=== PATIENT | female | born 1995 | race Hispanic/Latino ===

== ENCOUNTER 2019-12-10 04:59 | Emergency (ER) | payer OTHER, SELFPAY ==
[2019-12-10] MEDS ORDERED: ONDANSETRON 4 MG/2 ML VIAL ONE (05:25)
[2019-12-10] MEDS ORDERED: MORPHINE 4 MG/ML SYR ONE (05:25)
[2019-12-10] MEDS ORDERED: NA CHLORIDE 0.9% 1,000 ML ONE (05:25)
[2019-12-10 05:31] LABS: Absolute Lymphocytes (CBC) 4.7 K/uL (0.7-4.9); Basophils % 0.5 % (0-1.3); Hematocrit 42.2 % (36.0-45.0); Lymphocytes % 50.2 % (15.3-44.8); MPV 7.4 fL (7.6-11.3); RBC Red Blood Cell Count 4.56 M/uL (3.86-4.86)
[2019-12-10 05:48] LABS: ALT/SGPT 69 U/L (12-78); AST/SGOT 46 U/L (15-37); Albumin 4.2 g/dL (3.4-5.0); Alkaline Phosphatase 109 U/L (45-117); BUN Blood Urea Nitrogen 13 mg/dL (7-18); Bicarbonate 26 mmol/L (21-32); Bilirubin Direct 0.1 mg/dL (0-0.2); Bilirubin Total 0.4 mg/dL (0.2-1.0); Glucose Level 129 mg/dL (74-106); Lipase 115 U/L (73-393); Potassium 3.6 mmol/L (3.5-5.1); Protein, Total 8.2 g/dL (6.4-8.2); Sodium Level 142 mmol/L (136-145)
[2019-12-10 06:31] LABS: Urine Blood TRACE (NEG); Urine Glucose NEGATIVE (NEG); Urine Protein NEGATIVE (NEG); Urine Specific Gravity >1.030 (1.005-1.030)
--- NOTE | 2019-12-10 07:15 | ER ---
Nurse's Notes [facility] Name: Marla Gates Age: 24 yrs Sex: Female : 1995 Arrival Date: 12/10/2019 Time: 05:03 Bed 6 Private MD: Diagnosis: Right upper quadrant pain Presentation: 12/09 05:09 Chief complaint: Patient states: i have RUQ pain radiating to the back and vomiting \T\ mg2 0400 today. Coronavirus screen: Client denies travel out of the [place] in the last 14 days. vomiting. Ebola Screen: No symptoms or risks identified at this time. Initial Sepsis Screen: Does the patient meet any 2 criteria? No. Patient's initial sepsis screen is negative. Does the patient have a suspected source of infection? No. Patient's initial sepsis screen is negative. Risk Assessment: Do you want to hurt yourself or someone else? Patient reports no desire to harm self or others. Onset of symptoms was December 10, 2019 at 04:00. 05:09 Method Of Arrival: Ambulatory mg2 05:09 Acuity: WALESKA 3 mg2 Triage Assessment: 05:11 General: Appears in no apparent distress. comfortable, Behavior is calm, cooperative. mg2 Pain: Complains of pain in abdomen Pain radiates to back. EENT: No signs and/or symptoms were reported regarding the EENT system. Neuro: Level of Consciousness is awake, alert, obeys commands, Oriented to person, place, time, situation. Cardiovascular: Capillary refill < 3 seconds Patient's skin is warm and dry. Respiratory: Airway is patent Respiratory effort is even, unlabored, Respiratory pattern is regular, symmetrical. GI: Reports upper abdominal pain, nausea, vomiting. : No signs and/or symptoms were reported regarding the genitourinary system. Derm: Skin is intact, is healthy with good turgor, Skin is pink, warm \T\ dry. normal. Musculoskeletal: Circulation, motion, and sensation intact. Capillary refill < 3 seconds. 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 - Social history:: Smoking status: Patient denies any tobacco usage or history of. Patient uses alcohol, occasionally. Patient/guardian denies using street drugs, IV drugs. Screenin:12 Abuse screen: Denies threats or abuse. Denies injuries from another. Nutritional mg2 screening: No deficits noted. Nutritional screening: No deficits noted. Tuberculosis screening: No symptoms or risk factors identified. Fall Risk IV access (20 points). Assessment: 05:12 General: see triage assessment. mg2 05:15 GI: Bowel sounds present X 4 quads. Abd is soft. mg2 06:30 Reassessment:. ea 07:12 Reassessment: Patient appears in no apparent distress at this time. Patient and/or hb family updated on plan of care and expected duration. Pain level reassessed. Patient is alert, oriented x 3, equal unlabored respirations, skin warm/dry/pink. Patient states symptoms have improved. Vital Signs: 05:09 Weight 63.5 kg; Height 5 ft. 1 in. (154.94 cm); mg2 05:20 BP 113 / 67; Pulse 63; Resp 18; Pulse Ox 100% on R/A; mg2 05:25 Temp 98.3; mg2 06:29 BP 97 / 57; Pulse 66; Resp 18; Pulse Ox 100% on R/A; mg2 07:15 BP 106 / 66; Pulse 64; Resp 16; Pulse Ox 99% on R/A; hb 05:09 Body Mass Index 26.45 (63.50 kg, 154.94 cm) mg2 ED Course: 05:03 Patient arrived in ED. es 05:04 Karel Cortes, RN is Primary Nurse. mg2 05:10 Triage completed. mg2 05:12 Patient has correct armband on for positive identification. Pulse ox on. NIBP on. Door mg2 closed. Warm blanket given. 05:12 No provider procedures requiring assistance completed. mg2 05:15 Inserted saline lock: 20 gauge in right antecubital area, using aseptic technique. mg2 Blood collected. BY LISA [place] Tech. 05:18 Senthil Monsalve MD is Attending Physician. pkl 05:22 Arm band placed on. mg2 06:07 CT Abd/Pelvis - IV Contrast Only In Process Unspecified. EDMS 06:30 Bladder scan completed. 30. ea 07:25 IV discontinued, intact, bleeding controlled, No redness/swelling at site. hb Administered Medications: 05:19 Drug: morphine 4 mg Route: IVP; Site: right antecubital; mg2 06:28 Follow up: Response: No adverse reaction mg2 05:19 Drug: Zofran (Ondansetron) 4 mg Route: IVP; Site: right antecubital; mg2 06:28 Follow up: Response: No adverse reaction mg2 05:19 Drug: NS 0.9% 1000 ml Route: IV; Rate: 1000 ml; Site: right antecubital; mg2 Output: 06:31 Urine: 60ml (Straight Cath); Total: 60ml. ea Outcome: 07:14 Discharge ordered by . pkneo 07:34 Discharged to home ambulatory. hb 07:34 Condition: stable 07:34 Discharge instructions given to patient, Instructed on discharge instructions, follow up and referral plans. medication usage, Demonstrated understanding of instructions, follow-up care, medications, Prescriptions given X 3. 07:34 Patient left the ED. hb Signatures: Dispatcher [employer] Senthil Lyons MD MD pkSusie Castillo Heather, RN RN Martine Woodard RN RN ea Gardose, Michele, RN RN mg2
--- NOTE | 2019-12-10 07:15 | EDPHYS ---
Physician Documentation [facility] Name: Marla Gates Age: 24 yrs Sex: Female : 1995 Arrival Date: 12/10/2019 Time: 05:03 Bed 6 Private MD: ED Physician Senthil Monsalve HPI: 12/09 05:22 This 24 yrs old Female presents to ER via Ambulatory with complaints of pkl Abdominal Pain, Low Back Pain, Nausea. 05:22 The patient presents with abdominal pain in the right upper quadrant. Onset: The pkl symptoms/episode began/occurred just prior to arrival, 1 hour(s) ago. The symptoms radiate to right back. Associated signs and symptoms: Pertinent positives: nausea and vomiting. The patient has not experienced similar symptoms in the past. 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 - Social history:: Smoking status: Patient denies any tobacco usage or history of. Patient uses alcohol, occasionally. Patient/guardian denies using street drugs, IV drugs. ROS: 05:22 Eyes: Negative for injury, pain, redness, and discharge, ENT: Negative for injury, pkl pain, and discharge, Neck: Negative for injury, pain, and swelling, Cardiovascular: Negative for chest pain, palpitations, and edema, Respiratory: Negative for shortness of breath, cough, wheezing, and pleuritic chest pain. 05:22 Abdomen/GI: Positive for abdominal pain, of the right upper quadrant. 05:22 Back: Positive for pain at rest, of the right mid back. 05:22 : Negative for urinary symptoms. 05:22 MS/extremity: Negative for acute changes. 05:22 Skin: Negative for rash. 05:22 Neuro: Negative for altered mental status. Exam: 05:22 Head/Face: Normocephalic, atraumatic. Eyes: Pupils equal round and reactive to light, pkl extra-ocular motions intact. Lids and lashes normal. Conjunctiva and sclera are non-icteric and not injected. Cornea within normal limits. Periorbital areas with no swelling, redness, or edema. ENT: Nares patent. No nasal discharge, no septal abnormalities noted. Tympanic membranes are normal and external auditory canals are clear. Oropharynx with no redness, swelling, or masses, exudates, or evidence of obstruction, uvula midline. Mucous membranes moist. Neck: Trachea midline, no thyromegaly or masses palpated, and no cervical lymphadenopathy. Supple, full range of motion without nuchal rigidity, or vertebral point tenderness. No Meningismus. Chest/axilla: Normal chest wall appearance and motion. Nontender with no deformity. No lesions are appreciated. Cardiovascular: Regular rate and rhythm with a normal S1 and S2. No gallops, murmurs, or rubs. Normal PMI, no JVD. No pulse deficits. Respiratory: Lungs have equal breath sounds bilaterally, clear to auscultation and percussion. No rales, rhonchi or wheezes noted. No increased work of breathing, no retractions or nasal flaring. 05:22 Abdomen/GI: Bowel sounds: normal, Palpation: soft, mild abdominal tenderness, in the right upper quadrant. 05:22 Back: Exam negative for acute changes. 05:22 : Exam negative for acute changes. 05:22 Musculoskeletal/extremity: Exam is negative for acute changes. 05:22 Skin: Exam negative for rash. 05:22 Neuro: Orientation: is normal, Mentation: is normal, Cranial nerves: grossly normal, Motor: Vital Signs: 05:09 Weight 63.5 kg; Height 5 ft. 1 in. (154.94 cm); mg2 05:20 BP 113 / 67; Pulse 63; Resp 18; Pulse Ox 100% on R/A; mg2 05:25 Temp 98.3; mg2 06:29 BP 97 / 57; Pulse 66; Resp 18; Pulse Ox 100% on R/A; mg2 07:15 BP 106 / 66; Pulse 64; Resp 16; Pulse Ox 99% on R/A; hb 05:09 Body Mass Index 26.45 (63.50 kg, 154.94 cm) mg2 MDM: 05:18 Patient medically screened. pkl 07:09 Data reviewed: vital signs, nurses notes, lab test result(s), radiologic studies, CT pkl scan. ED course: Patient feeling better. Pain resolved. Discussed lab. and CT Scan results with patient. Advised to follow up with general surgeon for further evaluation. Patient understood instructions. 12/09 05:12 Order name: Basic Metabolic Panel; Complete Time: 05:50 mg2 12/09 05:12 Order name: CBC with Diff; Complete Time: 05:50 mg2 12/09 05:12 Order name: Hepatic Function; Complete Time: 05:50 mg2 12/09 05:12 Order name: Lipase; Complete Time: 05:50 mg2 12/09 05:45 Order name: Urine Dipstick--Ancillary (enter results); Complete Time: 06:34 sg 12/09 05:45 Order name: Urine --Ancillary (enter results); Complete Time: 06:34 sg 12/09 05:12 Order name: IV Saline Lock; Complete Time: 05:19 mg2 12/09 05:12 Order name: Labs collected and sent; Complete Time: : mg2 12/09 05:19 Order name: CT Abd/Pelvis - IV Contrast Only pkl Administered Medications: 05:19 Drug: morphine 4 mg Route: IVP; Site: right antecubital; mg2 06:28 Follow up: Response: No adverse reaction mg2 05:19 Drug: Zofran (Ondansetron) 4 mg Route: IVP; Site: right antecubital; mg2 06:28 Follow up: Response: No adverse reaction mg2 05:19 Drug: NS 0.9% 1000 ml Route: IV; Rate: 1000 ml; Site: right antecubital; mg2 Disposition: 12/10/19 07:14 Discharged to Home. Impression: Right upper quadrant pain. - Condition is Stable. - Prescriptions for Ultram 50 mg Oral Tablet - take 1 tablet by ORAL route every 8 hours As needed; 12 tablet. Zofran 4 mg Oral Tablet - take 1 tablet by ORAL route every 12 hours As needed; 6 tablet. Cipro 500 mg Oral Tablet - take 1 tablet by ORAL route every 12 hours for 7 days; 14 tablet. - Medication Reconciliation Form, Thank You Letter, Antibiotic Education, Prescription Opioid Use form. - Follow up: Private Physician; When: 2 - 3 days; Reason: Re-evaluation by your physician. - Problem is new. - Symptoms have improved. Signatures: Dispatcher [facility] Senthil Monsalve MD MD pkl Cheryl Alas RN RN Karel Cortes RN RN mg2 Corrections: (The following items were deleted from the chart) 07:34 07:14 12/10/2019 07:14 Discharged to Home. Impression: Right upper quadrant pain. hb Condition is Stable. Forms are Medication Reconciliation Form, Thank You Letter, Antibiotic Education, Prescription Opioid Use. Follow up: Private Physician; When: 2 - 3 days; Reason: Re-evaluation by your physician. Problem is new. Symptoms have improved. pkl
[2019-12-10 07:42] VITALS: TEMP 98.3
[2019-12-10 07:47] VITALS: BP 106/66; O2SAT 99
--- NOTE | 2019-12-10 12:45 | RAD REPORT ---
EXAM DESCRIPTION: CT - Abdomen Pelvis W Contrast - 12/10/2019 8:55 am CLINICAL HISTORY: Right upper quadrant pain. COMPARISON: None Available. TECHNIQUE: CT of the abdomen and pelvis performed following IV administration of iodinated contras t. FINDINGS: Lung Bases: The visualized lung bases are clear. Bones: No destructive bone lesions identified. Abdomen: Liver: The liver has normal size and density. No intrahepatic biliary dilatation. Gallbladder: Distention of the gallbladder without calcified gallstones identified. No pericholecysti c inflammatory change. Spleen, Pancreas, and Adrenal Glands: The spleen, pancreas, and adrenal glands are unremarkable. Kidneys: No hydronephrosis or obstructing calculus. Vasculature: The aorta and IVC have normal caliber and position. The portal vein is patent. The pro ximal visceral and renal arteries are patent. Stomach: The stomach and duodenum have normal course. Other: No free intraperitoneal air. No free fluid or lymphadenopathy. Pelvis: Bladder: Urinary bladder is unremarkable. Bowel: No dilated loops of large or small bowel. Appendix: Normal appendix. Pelvis: Uterus is not enlarged. IMPRESSION: 1. Mild distention of the gallbladder without gallstones identified. If there is concern for cholelithiasis right upper quadrant ultrasound would provide additional characterization. This exam was performed according to our departmental dose-optimization program, which includes autom ated exposure control, adjustment of the mA and/or kV according to patient size and/or use of iterati ve reconstruction technique. Electronically signed by: Castro Maldonado 12/10/2019 7:02 AM CDT Due to temporary technical issues with the PACS/Fluency reporting system, reports are being signed by the in house radiologist without review as a courtesy to ensure prompt reporting. The interpreting r adiologist is fully responsible for the content of the report.
== END 2019-12-10 07:34 | disposition home or self-care (01) ==
LOC: ER 04:59
DX: R10.11 Right upper quadrant pain (principal); R11.2 Nausea with vomiting, unspecified
CPT/HCPCS: 36415; 74177; 80048; 80076; 81003; 81025; 83690; 85025; 96374; 96375; 99284; J2405; J7030; Q9967

== ENCOUNTER 2019-12-15 05:24 | Inpatient (IN) | payer SELFPAY ==
[2019-12-15 06:16] LABS: Urine Blood NEGATIVE (NEG); Urine Glucose NEGATIVE (NEG); Urine Protein TRACE (NEG); Urine Specific Gravity >1.030 (1.005-1.030)
[2019-12-15 06:27] LABS: Absolute Lymphocytes (CBC) 1.7 K/uL (0.7-4.9); Basophils % 0.6 % (0-1.3); Hematocrit 37.6 % (36.0-45.0); Lymphocytes % 23.6 % (15.3-44.8); RBC Red Blood Cell Count 4.09 M/uL (3.86-4.86)
[2019-12-15 06:37] LABS: ALT/SGPT 126 U/L (12-78); AST/SGOT 120 U/L (15-37); Albumin 3.8 g/dL (3.4-5.0); Alkaline Phosphatase 101 U/L (45-117); BUN Blood Urea Nitrogen 17 mg/dL (7-18); Bicarbonate 25 mmol/L (21-32); Bilirubin Direct 0.2 mg/dL (0-0.2); Bilirubin Total 0.4 mg/dL (0.2-1.0); Glucose Level 108 mg/dL (74-106); Lipase 86 U/L (73-393); Potassium 3.6 mmol/L (3.5-5.1); Protein, Total 7.3 g/dL (6.4-8.2); Sodium Level 139 mmol/L (136-145)
--- NOTE | 2019-12-15 07:07 | ER ---
Nurse's Notes [facility] Name: Marla Gates Age: 24 yrs Sex: Female : 1995 Arrival Date: 12/15/2019 Time: 05:28 Bed 7 Private MD: Diagnosis: Other abdominal pain Presentation: 12/14 05:34 Chief complaint: Patient states: i was here last Sunday for abdominal pain and mg2 vomiting. now I am back for the same problem. I took ultram prior to arrival. Coronavirus screen: Client denies travel out of the [place] in the last 14 days. At this time, the client does not indicate any symptoms associated with coronavirus-19. Ebola Screen: No symptoms or risks identified at this time. Initial Sepsis Screen: Does the patient meet any 2 criteria? No. Patient's initial sepsis screen is negative. Does the patient have a suspected source of infection? No. Patient's initial sepsis screen is negative. Risk Assessment: Do you want to hurt yourself or someone else? Patient reports no desire to harm self or others. Onset of symptoms was November 2019. 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 - Social history:: Smoking status: Patient denies any tobacco usage or history of. Patient/guardian denies using alcohol, street drugs, IV drugs. - Family history:: not pertinent. - Hospitalizations: : No recent hospitalization is reported. Screenin:39 Abuse screen: Denies threats or abuse. Denies injuries from another. Nutritional mg2 screening: No deficits noted. Tuberculosis screening: No symptoms or risk factors identified. Fall Risk IV access (20 points). Assessment: 05:38 General: Appears in no apparent distress. comfortable, Behavior is calm, cooperative. mg2 Pain: Complains of pain in abdomen Pain radiates to back Quality of pain is described as aching, Pain began gradually. Neuro: Level of Consciousness is awake, alert, obeys commands, Oriented to person, place, time, situation. Cardiovascular: Capillary refill < 3 seconds Patient's skin is warm and dry. Respiratory: Airway is patent Respiratory effort is even, unlabored, Respiratory pattern is regular, symmetrical. GI: Bowel sounds Abd is soft Reports upper abdominal pain, vomiting. :. EENT: No signs and/or symptoms were reported regarding the EENT system. Derm: Skin is intact, is healthy with good turgor, Skin is pink, warm \T\ dry. normal. Musculoskeletal: Circulation, motion, and sensation intact. Capillary refill < 3 seconds. 07:13 Reassessment: patient agreed to be admitted. pain tolerated. mg2 07:45 Reassessment: Patient appears in no apparent distress at this time. Patient and/or em family updated on plan of care and expected duration. Pain level reassessed. Patient is alert, oriented x 3, equal unlabored respirations, skin warm/dry/pink. pending room assignment, currently has no needs. 08:45 Reassessment: Patient appears in no apparent distress at this time. Patient and/or em family updated on plan of care and expected duration. Pain level reassessed. Patient is alert, oriented x 3, equal unlabored respirations, skin warm/dry/pink. Vital Signs: 05:34 BP 107 / 71; Pulse 83; Resp 18; Temp 97.9; Pulse Ox 100% on R/A; Weight 63.5 kg; Height mg2 5 ft. 1 in. (154.94 cm); Pain 2/10; 07:12 BP 107 / 63; Pulse 73; Resp 18; Pulse Ox 100% on R/A; mg2 09:05 BP 110 / 69; Pulse 78; Resp 16; Pulse Ox 99% on R/A; em 05:34 Body Mass Index 26.45 (63.50 kg, 154.94 cm) mg2 ED Course: 05:28 Patient arrived in ED. es 05:30 Karel Cortes, BERTHA is Primary Nurse. mg2 05:31 Liban Romo MD is Attending Physician. rn 05:37 Triage completed. mg2 05:37 Arm band placed on. mg2 05:40 Patient has correct armband on for positive identification. mg2 05:40 No provider procedures requiring assistance completed. mg2 05:49 Inserted saline lock: 20 gauge in right antecubital area, using aseptic technique. mg2 Blood collected. by BERTHA dorsey. 06:38 Jose Angel Torres PA is PHCP. cp 07:02 US Abdomen Limited In Process Unspecified. EDMS 07:05 Jose Angel Torres PA is PHCP. cp 07:06 Vladimir Sterling MD is Hospitalizing Provider. cp 09:01 Patient admitted, IV remains in place. em Administered Medications: 07:12 Drug: Rocephin 1 grams Route: IV; Rate: calculated rate; Site: right antecubital; mg2 07:38 Follow up: Response: No adverse reaction; IV Status: Completed infusion; IV Intake: 10mlem Intake: 07:38 IV: 10ml; Total: 10ml. em Outcome: 07:07 Decision to Hospitalize by Provider. cp 08:58 Admitted to Med/surg accompanied by tech, via wheelchair, room 230, with chart, Report em called to BERTHA CHAPIN 08:58 Condition: good 08:58 Discharge instructions given to patient, Instructed on the need for admit, Demonstrated understanding of instructions. 09:08 Patient left the ED. em Signatures: Dispatcher [employer] EDMO Susie Nolen Edgar RN RN em Liban Romo MD MD rn Page, Corey, PA PA cp Gardose, Michele, RN RN mg2 Corrections: (The following items were deleted from the chart) 05:40 05:38 GI: Bowel sounds Abd is soft mg2 mg2
--- NOTE | 2019-12-15 07:07 | EDPHYS ---
Physician Documentation [facility] Name: Marla Gates Age: 24 yrs Sex: Female : 1995 Arrival Date: 12/15/2019 Time: 05:28 Bed 7 Private MD: ED Physician Liban Romo HPI: 12/14 05:48 This 24 yrs old Female presents to ER via Ambulatory with complaints of rn Abdominal Pain. 05:48 The patient presents with abdominal pain in the epigastric area, in the upper abdomen, rn in the right upper quadrant. Onset: The symptoms/episode began/occurred this morning. The symptoms radiate to Associated signs and symptoms: Pertinent positives: nausea, vomiting, Pertinent negatives: blood in stools, chest pain, constipation, diarrhea, dysuria, fever, vaginal discharge. The symptoms are described as achy, sharp. Modifying factors: The symptoms are alleviated by the symptoms are aggravated by nothing. Severity of pain: At its worst the pain was moderate in the emergency department the pain is unchanged. The patient has experienced a previous episode. Reports upper abd pain, began this AM, had hot wings last night, seen last week, told swollen gallbladder but no stones or infection. Reports took pain meds prescribed prior to coming in, and now pain improved. Threw up once. No fever. . [employer] CHIEF: 05:40 LMP 11/2019 mg2 Historical: - Allergies: 05:37 No Known Allergies; mg2 - Home Meds: 05:37 None [Active]; mg2 - PMHx: 05:37 None; mg2 - PSHx: 05:37 None; mg2 - Immunization history:: Flu vaccine status is unknown. - Social history:: Smoking status: Patient denies any tobacco usage or history of. Patient/guardian denies using alcohol, street drugs, IV drugs. - Family history:: not pertinent. - Hospitalizations: : No recent hospitalization is reported. ROS: 05:48 Constitutional: Negative for fever, chills, and weight loss, Eyes: Negative for injury, rn pain, redness, and discharge, Neck: Negative for injury, pain, and swelling, Cardiovascular: Negative for chest pain, palpitations, and edema, Respiratory: Negative for shortness of breath, cough, wheezing, and pleuritic chest pain, Abdomen/GI: + abd pain and nausea Back: Negative for injury and pain, MS/Extremity: Negative for injury and deformity, Skin: Negative for injury, rash, and discoloration, Neuro: Negative for headache, weakness, numbness, tingling, and seizure. Exam: 05:48 Constitutional: This is a well developed, well nourished patient who is awake, alert, rn and in no acute distress. Head/Face: Normocephalic, atraumatic. Cardiovascular: Regular rate and rhythm. No pulse deficits. Respiratory: No increased work of breathing, no retractions or nasal flaring. Abdomen/GI: Soft, non-tender Skin: Warm, dry with normal turgor. Normal color with no rashes, no lesions, and no evidence of cellulitis. MS/ Extremity: Pulses equal, no cyanosis. Neurovascular intact. Full, normal range of motion. Equal circumference. Neuro: Awake and alert, GCS 15 Vital Signs: 05:34 BP 107 / 71; Pulse 83; Resp 18; Temp 97.9; Pulse Ox 100% on R/A; Weight 63.5 kg; Height mg2 5 ft. 1 in. (154.94 cm); Pain 2/10; 07:12 BP 107 / 63; Pulse 73; Resp 18; Pulse Ox 100% on R/A; mg2 09:05 BP 110 / 69; Pulse 78; Resp 16; Pulse Ox 99% on R/A; em 05:34 Body Mass Index 26.45 (63.50 kg, 154.94 cm) mg2 MDM: 05:31 Patient medically screened. rn 06:15 Differential diagnosis: cholecystitis, Cholelithiasis, gastritis, pancreatitis, cp Pyelonephritis, Ureterolithiasis, urinary tract infection. 07:05 Data reviewed: vital signs, nurses notes, lab test result(s), radiologic studies, cp ultrasound, I have discussed the patient's presentation/case with the attending Emergency Department Physician; and as a result, I will admit patient. 12/14 05:47 Order name: Basic Metabolic Panel; Complete Time: 06:38 rn 12/14 05:47 Order name: CBC with Diff; Complete Time: 06:38 rn 12/14 05:47 Order name: Hepatic Function; Complete Time: 06:38 rn 12/14 05:47 Order name: Lipase; Complete Time: 06:38 rn 12/14 06:03 Order name: Urine Dipstick--Ancillary (enter results); Complete Time: 06:38 mw2 12/14 06:03 Order name: Urine --Ancillary (enter results); Complete Time: 06:38 mw2 12/14 05:47 Order name: US Abdomen Limited; Complete Time: 08:57 rn 12/14 08:57 Interpretation: Report reviewed. cp 12/14 07:14 Order name: Basic Metabolic Panel EDMS 12/14 07:14 Order name: Basic Metabolic Panel EDMS 12/14 07:14 Order name: Lipase EDMS 12/14 07:14 Order name: Lipase EDMS 12/14 07:15 Order name: CBC with Automated Diff EDMS 12/14 07:15 Order name: CBC with Automated Diff EDMS 12/14 05:47 Order name: IV Saline Lock; Complete Time: 05:48 rn 12/14 05:47 Order name: Labs collected and sent; Complete Time: 05:48 rn 12/14 05:47 Order name: Urine Test (obtain specimen); Complete Time: 05:59 rn 12/14 05:47 Order name: Urine Dipstick-Ancillary (obtain specimen); Complete Time: 05:59 rn 12/14 07:15 Order name: NPO EDMS 12/14 07:15 Order name: NPO EDMS Administered Medications: 07:12 Drug: Rocephin 1 grams Route: IV; Rate: calculated rate; Site: right antecubital; mg2 07:38 Follow up: Response: No adverse reaction; IV Status: Completed infusion; IV Intake: 10mlem Disposition: 12/15/19 07:07 Hospitalization ordered by Vladimir Sterling for Observation. Preliminary diagnosis is Other abdominal pain. - Bed requested for Telemetry/MedSurg (observation). - Status is Observation. em - Condition is Stable. - Problem is an ongoing problem. - Symptoms have improved. Addendum: 12/17/2019 07:05 Co-signature as Attending Physician, Liban Romo MD. r n Signatures: Dispatcher [employer] EDFL Indu Erickson Edgar, RN RN Liban Mendez MD MD rn Page, Corey, PA PA cp Gardose, Michele, RN RN mg2 Corrections: (The following items were deleted from the chart) 12/14 06:43 05:48 Abdomen Exam Limited ordered. EDMS EDMS 08:43 07:07 Hospitalization Ordered by Vladimir Sterling MD for Observation. Preliminary bd diagnosis is Other abdominal pain. Bed requested for Telemetry/MedSurg (observation). Status is Observation. Condition is Stable. Problem is an ongoing problem. Symptoms have improved. cp 09:08 08:43 12/15/2019 07:07 Hospitalization Ordered by Vladimir Sterling MD for Observation. em Preliminary diagnosis is Other abdominal pain. Bed requested for Telemetry/MedSurg (observation). Status is Observation. Condition is Stable. Problem is an ongoing problem. Symptoms have improved. bd
[2019-12-15] MEDS ORDERED: MORPHINE 2 MG/ML SYR IV PRN (07:10)
[2019-12-15] MEDS ORDERED: ONDANSETRON 4 MG/2 ML VIAL IV PRN (07:10)
[2019-12-15] MEDS ORDERED: CEFTRIAXONE/SWI 1gm 1 GM/10 ML SYR ONE (07:19)
[2019-12-15] MEDS ORDERED: D5 0.45 NS 1,000 ML IV SCH (08:00)
--- NOTE | 2019-12-15 08:54 | RAD REPORT ---
EXAM DESCRIPTION: US - Abdomen Exam Limited - 12/15/2019 7:01 am CLINICAL HISTORY: upper abd pain COMPARISON: No comparisons FINDINGS: The gallbladder demonstrates no gallstones with a small amount of sludge. No pericholecyst ic fluid or gallbladder wall thickening. The common bile duct is normal measuring 4 mm. The liver demonstrates no findings of intrahepatic biliary dilatation. IMPRESSION: Gallbladder sludge.
[2019-12-15] MEDS ORDERED: CEFTRIAXONE/SWI 1gm 1 GM/10 ML SYR IV SCH (09:00)
[2019-12-15 10:10] VITALS: BMI 26.4
[2019-12-15] MEDS: NA CHLORIDE 0.9% 1,000 ML IV SCH ×2 (10:52→17:19)
[2019-12-15] MEDS ORDERED: FENTANYL CITR 100 MCG/2 ML ONE (12:56)
[2019-12-15] MEDS ORDERED: MIDAZOLAM HCL 2 MG/2 ML INJ ONE (12:56)
[2019-12-15] MEDS ORDERED: dexAMETHasone 10 MG/ML VIAL ONE (12:56)
[2019-12-15] MEDS ORDERED: propofoL 200 MG/20 ML VIAL IV ONE (12:56)
[2019-12-15] MEDS ORDERED: ROCURONIUM 50 MG/5 ML VIAL IV ONE (12:56)
[2019-12-15] MEDS ORDERED: LIDOCAINE 2% MPF 5 ML VIAL ONE (12:56)
[2019-12-15] MEDS ORDERED: ONDANSETRON 4 MG/2 ML VIAL ONE (12:57)
--- NOTE | 2019-12-15 13:42 | P.HP ---
Date of Service: 12/15/19 PC: This 24-year-old female presented to the emergency room with severe right upper quadrant abdominal pain for diagnosis and treatment. HPC: Patient been seen previously in the emergency room with severe right upper quadrant abdominal pain, radiating into her back. Last night she had a duplication of her symptoms. Under initial presentation she was found gallstone bladder full of sludge. She was advised for surgical follow-up. However last night her pain recurred and she returned. PMH: Negative PSHx: Negative SOC: No known allergies SYS REVIEW: No cough, wheeze, shortness of breath. No chest pain or palpitations. No urinary complaints O/E awake alert vital signs are stable HEENT: Not jaundiced Chest: Air entry is equal bilaterally ABD: Tender in the right upper quadrant no guarding or rebound LOCO: Intact DATA: Ultrasound demonstrates sludge IMPRESSION: cholecystitis with sludge, biliary colic PLAN: I will take her the operating room for laparoscopic possible open cholecystectomy with intraoperative cholangiogram. The risks of this procedure have been discussed with the patient. The possibility of bleeding, infection, injury to bile ducts blood vessels intestines has been described. The possible need for an open and/or further surgeries and procedures was discussed. She understands and wants us to proceed.
[2019-12-15] MEDS ORDERED: GLYCOPYRROLATE 0.2 MG/ML SYR ONE (14:39)
[2019-12-15] MEDS ORDERED: KETOROLAC 30 MG/ML INJ ONE (14:39)
[2019-12-15] MEDS ORDERED: NEOSTIGMINE 1 MG/ML -5 ML ONE (14:39)
--- NOTE | 2019-12-15 14:45 | P.OP ---
Preoperative diagnosis: Chronic cholecystitis, biliary colic Postoperative diagnosis: The same Primary procedure: Laparoscopic cholecystectomy Secondary procedure: Cholangiogram Other procedure(s): DARCY block Estimated blood loss: Less than 10 cc Specimen: 1 gallbladder and contents Findings: Distended gallbladder, normal cholangiogram Operative Technique: The patient was brought to the operating room and placed supine on the table. After the induction of adequate general endotracheal anesthesia, the area of the abdomen was prepped with a DuraPrep solution, and draped in the usual aseptic manner. A subumbilical incision was made. This was brought down through the skin and subcutaneous tissue. The Visiport was used to enter the peritoneal cavity and create a pneumoperitoneum to approximately 12 mm of mercury. Under direct vision a 5 mm trocar was placed in the upper midline, and 2 other 5 mm trocars on the right lateral side of the abdominal wall. The patients' head was then elevated and rolled towards the oiling machine operator's side. We could see a distended gallbladder. It was necessary to aspirate its contents we could place a grasper on the fundus. A grasper was placed on the fundus of the gallbladder. Another 1 was placed down by Brennan's pouch. Applying lateral traction we were able to dissect and expose the cystic duct and artery. We obtained the critical view. The artery was dealt with 1st. It was clipped and divided in the usual manner. A clip was then placed between the gallbladder and the cystic duct. An opening was made into the cystic duct. We attempted then to pass the cholangiocath into the cystic duct. Injecting contrast allowed us to obtain a cholangiogram that showed no evidence of any filling defects in the common bile duct. There was good flow into the duodenum. The catheter was now removed. Clips were now placed on the distal portion of the cystic duct. The cystic duct was then fully divided. The gallbladder was now dissected free from the liver bed, placed into an Endo-Catch, and brought out through the umbilical trocar site. The gallbladder fossa was inspected to ensure adequate hemostasis. It was irrigated with a saline solution and the irrigant aspirated from the peritoneal cavity. 0.25% Marcaine was aerosolized into the right upper quadrant and the gallbladder fossa. The umbilical trocar site was now approximated with an Endo Close and an absorbable sutures. The pneumoperitoneum was then collapsed, the suture tied, and greta applied to the skin. A further 0.25% Marcaine was injected around are incision sites. At the end of the procedure the patient was in a stable condition when sent to the recovery room. Needle sponge instrument count were correct. 1 specimen was sent for histopathology. Complications: None Transferred to: Recovery Room Condition: Good
[2019-12-15] MEDS ORDERED: Ringers Lactate 1,000 ML IV ONE (14:48)
[2019-12-15] MEDS: MEPERIDINE HCL 50 MG/ML ONE ×2 (15:09→15:16)
[2019-12-15] MEDS: HYDROMORPHONE HCL 1 MG/ML INJ ONE ×2 (15:21→15:27)
[2019-12-15] MEDS ORDERED: HYDROCODONE/APAP 7.5/325 MG TAB PO PRN (15:22)
--- NOTE | 2019-12-15 15:26 | RAD REPORT ---
EXAM DESCRIPTION: RADCholangiogram Oper-Xray Or12/15/2019 3:16 pm CLINICAL HISTORY: Abdominal pain FINDINGS: The examination was performed by Dr. Sterling. The cystic duct was cannulated and contrast administered. Fluoroscopy time 0.2 minutes. Two fluoroscopic spot images obtained Contrast flowed into the duodenum. The biliary tree is normal caliber without a filling defect seen.
[2019-12-15] MEDS: CEFTRIAXONE/SWI 1gm 1 GM/10 ML SYR IV SCH (17:19)
[2019-12-15 22:48] VITALS: O2SAT 98
[2019-12-16] MEDS: NA CHLORIDE 0.9% 1,000 ML IV SCH (03:34)
[2019-12-16] MEDS: CEFTRIAXONE/SWI 1gm 1 GM/10 ML SYR IV SCH (05:29)
[2019-12-16 09:49] VITALS: BP 106/63; TEMP 97.3
== END 2019-12-16 09:49 | disposition home or self-care (01) | DRG 419 ==
LOC: ER 05:24 → ERHOLD 07:43 → OBSVTOIN 07:43 → 2ND 08:55
PROVIDERS: ADMIT Surgery; ATTEND Surgery
PROC: BF121ZZ Fluoroscopy of Gallbladder using Low Osmolar Contrast (ICD-10-PCS; 2019-12-15)
PROC: 0FT44ZZ Resection of Gallbladder, Percutaneous Endoscopic Approach (ICD-10-PCS; principal; 2019-12-15 12:00)
DX: K80.44 Calculus of bile duct with chronic cholecystitis without obstruction (principal)
CPT/HCPCS: 36415; 74300; 76705; 80048; 80076; 81003; 81025; 83690; 85025; 88304; 96365; 99285; J0696; J1100; J1170; J2175; J2250; J2405; J2704; J2710; J3010; J7030; J7120; U0002